=== PATIENT | male | born 1960 | race Caucasian/White ===

== ENCOUNTER 2017-11-18 11:18 | Inpatient (IN) | payer OTHER ==
[2017-11-18] MEDS ORDERED: Ondansetron HCl/PF 4 MG/2 ML Vial IVP PRN (12:18)
[2017-11-18] MEDS ORDERED: Calcium Carbonate 500 MG ChewTAB PO PRN (12:18)
[2017-11-18] MEDS ORDERED: Acetaminophen 325 MG TAB PO PRN (12:18)
[2017-11-18] MEDS ORDERED: Ondansetron ODT 4 MG TAB PO PRN (12:18)
[2017-11-18] MEDS ORDERED: hydrALAZINE 20 MG/ML VIAL SLOW IVP PRN (12:18)
[2017-11-18] MEDS ORDERED: Senokot 8.6 MG TAB PO PRN (12:18)
[2017-11-18 12:31] LABS: #Basophils 0.1 thou/uL (0.0-0.2); #Eosinphils 0.5 thou/uL (0.0-0.7); #Lymphocytes 1.3 thou/uL (1.20-3.40); #Monocytes 0.6 thou/uL (0.11-0.59); #Neutrophils 3.8 thou/uL (1.40-6.50); %Basophils 1.2 % (0.0-1.0); %Eosinophils 7.9 % (0.0-10.0); %Lymphocytes 20.7 % (21.0-51.0); %Monocytes 9.2 % (0.0-10.0); %Neutrophils 61.1 % (42.0-75.0); Hemoglobin 10.7 g/dL (14.0-18.0); Mean Corpuscular HGB CONC 33.1 g/dL (32.0-36.0); Mean Corpuscular Hemoglobin 30.9 pg (27.0-31.0); Mean Corpuscular Volume 93.2 fl (80.0-94.0); Mean Platelet Volume 7.4 fL (7.4-10.4); Platelet Count 353 thou/uL (130-400); RBC Distribution Width 11.3 % (11.5-14.5); Red Blood Cell (RBC) Count 3.46 mill/uL (4.70-6.10); White Blood Cell (WBC) Count 6.1 thou/uL (4.8-10.8)
[2017-11-18 12:38] VITALS: BMI 23.3
[2017-11-18 12:52] LABS: ALT (SGPT) 14 U/L (8-55); AST (SGOT) 13 U/L (5-34); Albumin 4.7 g/dL (3.5-5.0); Alkaline Phosphatase 42 U/L (40-150); Anion Gap 18 mmol/L (10-20); BUN (Urea Nitrogen) 101 mg/dL (8.4-25.7); Bilirubin, Total 0.5 mg/dL (0.2-1.2); Calc. Creatinine Clearance 10 mL/min (70-130); Calcium 10.7 mg/dL (7.8-10.44); Carbon Dioxide 21 mmol/L (22-29); Chloride 104 mmol/L (98-107); Estimated GFR-MDRD 6; Globulin 3.1 g/dL (2.4-3.5); Glucose 95 mg/dL (70-105); Phosphorus 5.8 mg/dL (2.3-4.7); Potassium 4.5 mmol/L (3.5-5.1); Protein, Total 7.8 g/dL (6.0-8.3); Sodium 138 mmol/L (136-145)
[2017-11-18 13:12] LABS: HBSAg Index 0.13 S/CO (0-0.99); HIV (1/2) Antibody/Antigen Non-Reactive (NonReactive); HIV 1/2 INDEX 0.12 S/CO (<1.00); Hep B Core Total Ab Non-Reactive (NonReactive); Hep B Core Total Index 0.08 S/CO (0-0.79); Hep B Surf AB Non-Reactive (NonReactive); Hep B Surf Ag Non-Reactive S/CO (NonReactive); Hep C IgG Ab Non-Reactive (NonReactive); Hep C Index 0.15 S/CO (0-0.79)
[2017-11-18 14:23] LABS: Bilirubin Negative (Negative); Blood, Urine Small (Negative); Clarity CLEAR (Clear); Glucose, Urine (Dipstick) 100 mg/dL (Negative); Leukocyte Small (Negative); Nitrite Negative (Negative); Protein, Urine (Dipstick) 30 mg/dL (Neg-Trace); Specific Gravity, Urine 1.008 (1.002-1.036); Urobilinogen 0.2 mg/dL (0.2-1.0); pH, Urine 6.5 (5.0-9.0)
[2017-11-18 14:30] LABS: Bacteria/HPF None Seen HPF (None Seen); Hyaline Casts/LPF 0-3 HYALINE CAST LPF (0-3 Hyaline); Pathc Cast-AUWi Flag 0.14 (0-2.49); RBC/HPF 0-3 HPF (0-3); Squamous Epithelial None Seen HPF (0-3)
[2017-11-18 14:54] LABS: Troponin I Less than 0.010 ng/mL (< 0.028)
--- NOTE | 2017-11-18 20:24 | HP ---
DATE OF ADMISSION: 11/18/2017 PRIMARY SPORT SHOE SPIKE ASSEMBLER: Dr. Ignacio Zapata. CHIEF COMPLAINT: Uremic symptoms. The patient is direct admit from Dr. Ignacio Zapata's office. HISTORY OF PRESENT ILLNESS: The patient is a 57-year-old male with polycystic kidney disease, who pr esented as a direct admit from Dr. Ignacio Zapata's office for uremia. The patient has a long history of polycystic kidney disease. He used to follow out of town nephrolog ist until 3-4 months ago. Currently, he sees Dr. Ignacio Zapata with weekly labs. He is currently s cheduled for a renal transplant in January of this year. Over the past few months, the patient has fatigue that is progressively getting worse to the extent t hat patient is unable to participate in his regular activities of daily living. He also had shortnes s of breath on mild exertion. He denies any chest pain, shortness of breath, palpitations, nausea, v omiting, diaphoresis. Dr. Ignacio Zapata recommended starting him on hemodialysis due to uremic symp toms. PAST MEDICAL HISTORY: 1. Polycystic kidney disease. 2. Hypertension. 3. Hyperlipidemia. PAST SURGICAL HISTORY: Hernia surgery x4. ALLERGIES: No known drug allergies. CURRENT HOME MEDICATIONS: Amlodipine 10 mg daily, Lipitor 10 mg daily, calcitriol 0.25 mcg daily, ca rvedilol 12.5 mg b.i.d., Lasix 40 mg daily, Cialis 5 mg daily, terazosin 1 mg at bedtime, and testost erone gel 3 times daily. ALLERGIES: No known drug allergies. SOCIAL HISTORY: Patient currently works as a senior strategy manager. He denies any smoking, alcohol or drug u se. He currently lives at home with his family. FAMILY HISTORY: Positive for polycystic kidney disease. REVIEW OF SYSTEMS: The following complete review of systems was negative, unless otherwise mentioned in the HPI or below: Constitutional: Weight loss or gain, ability to conduct usual activities. Skin: Rash, itching. Eyes: Double vision, pain. ENT/Mouth: Nose bleeding, neck stiffness, pain, tenderness. Cardiovascular: Palpitations, dyspnea on exertion, orthopnea. Respiratory: Shortness of breath, wheezing, cough, hemoptysis, fever or night sweats. Gastrointestinal: Poor appetite, abdominal pain, heartburn, nausea, vomiting, constipation, or diarrh ea. Genitourinary: Urgency, frequency, dysuria, nocturia. Musculoskeletal: Pain, swelling. Neurologic/Psychiatric: Anxiety, depression. Allergy/Immunologic: Skin rash, bleeding tendency. PHYSICAL EXAMINATION: VITAL SIGNS: Temperature 97.9, pulse rate of 105, respiration of 16, blood pressure of 144/90 with O 2 saturation 95% on room air. GENERAL: A 57-year-old male, in no apparent distress. Feels generally weak. HEENT: Atraumatic, normocephalic, sclerae are anicteric. Moist mucous membranes. No oral lesion. NECK: Supple, no JVD appreciated. No carotid bruit. LUNGS: Clear to auscultation bilaterally, no wheezing, rales or rhonchi. HEART: S1 and S2 present. Regular rate and rhythm. No rubs, gallops, or significant murmurs apprec iated. ABDOMEN: Soft, nontender, bowel sounds present. EXTREMITIES: Trace edema in bilateral lower extremities. No calf tenderness. SKIN: Warm and dry. LYMPH NODES: No palpable lymph nodes in the neck. NEUROLOGY: Grossly nonfocal, moves all four extremities. PSYCHIATRY: Alert, awake, oriented x3. PERIPHERAL VASCULAR: Radial pulses palpable bilaterally. MUSCULOSKELETAL: No joint swelling or tenderness. LABORATORY AND X-RAY FINDINGS: CBC showed WBC 6.1 with hemoglobin 10.7, hematocrit 32.3, platelet co unt of 353. Chemistry showed sodium 138, potassium 4.5, chloride 104, bicarbonate 21, BUN 101, creat inine 8.8, glucose of 95. Phosphorus 5.8. PTH of 175. Troponins were negative. Urinalysis was neg ative for bacteria; however, it showed 11-20 WBCs. EKG by my review showed sinus rhythm. IMPRESSION: 1. Acute kidney injury secondary to polycystic kidney disease. 2. Chronic kidney disease suspected stage 4. 3. Secondary hyperparathyroidism secondary to kidney disease. 4. Hypertension. 5. Hyperlipidemia. 6. Family history of polycystic kidney disease. PLAN: The patient will be monitored on the medical floor. General Surgery will be consulted for pawan lysis access. Hemodialysis will be initiated. We will add urine culture due to pyuria. We will hol d antibiotics for now. We will resume his home medications. Vital signs per routine protocol. We w ill consult adult protective caseworker for dialysis set up. Plan of care was discussed with the patient in detail, he stated understanding.
[2017-11-18] MEDS: Carvedilol 6.25 MG TAB PO SCH (20:50)
[2017-11-18] MEDS ORDERED: Non-Formulary Item 1 EACH (Carvedilol [Coreg] 12.5 MG) PO SCH (21:00)
--- NOTE | 2017-11-18 21:01 | EKG ---
Test Reason : Blood Pressure : / mmHG Vent. Rate : 062 BPM Atrial Rate : 062 BPM P-R Int : 218 ms QRS Dur : 102 ms QT Int : 388 ms P-R-T Axes : 047 033 016 degrees QTc Int : 393 ms Sinus rhythm with 1st degree A-V block Otherwise normal ECG No previous ECGs available Confirmed by LOULOU DUQUE ([id number]) on 11/18/2017 9:01:17 PM Referred By: BETO FELIZ Confirmed By:LOULOU DUQUE
[2017-11-18] MEDS: Terazosin HCl 1 MG CAP PO SCH (21:43)
[2017-11-18] MEDS ORDERED: Acetaminophen/Codeine 30-300mg Tablet PO PRN (23:34)
[2017-11-18] MEDS ORDERED: traMADol HCl 50 MG TAB PO PRN (23:35)
[2017-11-19] MEDS ORDERED: Tuberculin PPD 0.1 ML VIAL I-DERMAL SCH (06:00)
[2017-11-19] MEDS: Carvedilol 6.25 MG TAB PO SCH ×2 (08:38→20:14)
[2017-11-19] MEDS: Amlodipine 10 MG TAB PO SCH (08:38)
[2017-11-19] MEDS: Calcium Carbonate 500 MG ChewTAB PO SCH ×3 (08:38→17:26)
[2017-11-19] MEDS: Calcitriol 0.25 MCG CAP PO SCH (08:38)
[2017-11-19] MEDS: Furosemide 40 MG TAB PO SCH (08:39)
[2017-11-19] MEDS: Atorvastatin Calcium 10 MG TAB PO SCH (08:40)
--- NOTE | 2017-11-19 09:43 | CON ---
DATE OF SERVICE: 11/19/2017 Mr. Daugherty is a 57-year-old white male with polycystic kidney disease and progressive renal failure. He was admitted to the hospital by Dr. Zapata yesterday on 11/18/2017 for initiation of dialysis. Dung cervantes has apparently had progressive decline in renal function and there is a plan to proceed with a kidn ey transplant sometime later this year. I was consulted for dialysis access. I had arranged with the nurses to have available as I needed to put him on femoral dialysis catheter. Patient is under the impression that he was going to have a cuffed tunneled dialysis catheter place d. I explained that our two dialysis surgeons are both out of town until . I called Dr. Christian trevino and explained the same to him. There currently does not appear to be an urgent need to put in a femoral dialysis catheter and Dr. Zapata did not ask me to proceed with this. It is noted that his p otassium is normal and it does not appear to be grossly fluid overloaded. I will remain available sh ould the need for urgent dialysis arise.
[2017-11-19] MEDS ORDERED: Heparin 10,000 UNITS/ 10 ML VIAL ONE (10:00)
[2017-11-19] MEDS: Terazosin HCl 1 MG CAP PO SCH (20:18)
--- NOTE | 2017-11-19 21:01 | PDOC.PN ---
- Subjective Encounter Start Date: 11/19/17 Encounter Start Time: 12:00 Patient seen and examined. No new complaints. No overnight events - Objective Resuscitation Status: Resuscitation Status FULL:Full Resuscitation Vital Signs & Weight: Vital Signs (12 hours) Temp Pulse Resp BP BP Pulse Ox 11/19/17 20:42 97.9 F 74 20 126/80 97 11/19/17 20:14 126/80 11/19/17 13:37 98.1 F 73 16 116/73 96 Weight Weight 162 lb 5 oz I&O: 11/18/17 11/19/17 11/20/17 06:59 06:59 06:59 Intake Total 50 Balance 50 Result Diagrams: 11/18/17 12:20 11/18/17 12:20 Phys Exam - Physical Examination Constitutional: NAD Musculoskeletal: no edema Neurological: moves all 4 limbs Psychiatric: normal affect, A&O x 3 Dx/Plan - Plan DVT proph w/SCDs IMPRESSION: 1. Acute kidney injury secondary to polycystic kidney disease. 2. Chronic kidney disease suspected stage 4. 3. Secondary hyperparathyroidism secondary to kidney disease. 4. Hypertension. 5. Hyperlipidemia. 6. Family history of polycystic kidney disease. PLAN: * Nephro/Surg following * Dialysis per Nephro * Cont current meds as below Review of Systems - Review of Systems Cardiovascular: negative: chest pain, palpitations, orthopnea, paroxysmal nocturnal dyspnea, edema, light headedness, other Gastrointestinal: negative: Nausea, Vomiting, Abdominal Pain, Diarrhea, Constipation, Melena, Hematochezia, Other - Medications/Allergies Allergies/Adverse Reactions: Allergies Allergy/AdvReac Type Severity Reaction Status Date / Time No Known Allergies Allergy Unverified 11/18/17 11:44 Medications: Current Medications Acetaminophen (Tylenol) 650 mg PO Q4H PRN PRN Reason: Headache/Fever or Pain Acetaminophen/Codeine Phosphate (Tylenol #3) 1 tab PO Q2H PRN PRN Reason: PAIN 2nd line Amlodipine Besylate (Norvasc) 10 mg PO DAILY [facility] Last Admin: 11/19/17 08:38 Dose: 10 mg Atorvastatin Calcium (Lipitor) 10 mg PO DAILY [facility] Last Admin: 11/19/17 08:40 Dose: Not Given Calcitriol (Rocaltrol) 0.25 mcg PO DAILY [facility] Last Admin: 11/19/17 08:38 Dose: 0.25 mcg Calcium Carbonate (Tums) 1,000 mg PO Q4H PRN PRN Reason: Heartburn or Indigestion Calcium Carbonate (Tums) 500 mg PO PC [facility] Last Admin: 11/19/17 17:26 Dose: Not Given Carvedilol (Coreg) 12.5 mg PO BID [facility] Last Admin: 11/19/17 20:14 Dose: 12.5 mg Furosemide (Lasix) 40 mg PO QAM [facility] Last Admin: 11/19/17 08:39 Dose: 40 mg Hydralazine HCl (Apresoline) 10 mg SLOW IVP Q4H PRN PRN Reason: SBP Greater Than 180 Read Ppd Test Site 0 each PO 0600 [facility] Stop: 11/22/17 06:01 Ondansetron HCl (Zofran Odt) 4 mg PO Q6H PRN PRN Reason: Nausea/Vomiting Ondansetron HCl (Zofran) 4 mg IVP Q6H PRN PRN Reason: Nausea/Vomiting Senna (Senokot) 2 tab PO HSPRN PRN PRN Reason: Constipation Sodium Chloride (Flush - Normal Saline) 10 ml IVF PRN PRN PRN Reason: Saline Flush Terazosin HCl (Hytrin) 1 mg PO HS [facility] Last Admin: 11/19/17 20:18 Dose: 1 mg Tramadol HCl (Ultram) 50 mg PO Q12H PRN PRN Reason: Pain 1st line
[2017-11-20] MEDS ORDERED: Epoetin (ESRD) 20,000 UNITS/ML SC SCH (08:00)
[2017-11-20] MEDS: Atorvastatin Calcium 10 MG TAB PO SCH (09:04)
[2017-11-20] MEDS: Amlodipine 10 MG TAB PO SCH (09:04)
[2017-11-20] MEDS: Furosemide 40 MG TAB PO SCH (09:05)
[2017-11-20] MEDS: Calcitriol 0.25 MCG CAP PO SCH (09:05)
[2017-11-20] MEDS: Carvedilol 6.25 MG TAB PO SCH ×2 (09:05→20:25)
[2017-11-20] MEDS: Calcium Carbonate 500 MG ChewTAB PO SCH ×3 (09:06→17:33)
--- NOTE | 2017-11-20 16:11 | PDOC.PN ---
- Subjective Encounter Start Date: 11/20/17 Encounter Start Time: 11:20 Patient seen and examined. No new complaints. No overnight events - Objective Resuscitation Status: Resuscitation Status FULL:Full Resuscitation MAR Reviewed: Yes Vital Signs & Weight: Vital Signs (12 hours) Temp Pulse Resp BP BP Pulse Ox 11/20/17 09:05 121/78 11/20/17 09:04 72 121/78 11/20/17 08:00 98.3 F 72 16 97 11/20/17 07:47 98.3 F 72 16 121/78 97 Weight Weight 162 lb 5 oz I&O: 11/19/17 11/20/17 11/21/17 06:59 06:59 06:59 Intake Total 50 210 Balance 50 210 Result Diagrams: 11/18/17 12:20 11/18/17 12:20 Phys Exam - Physical Examination Constitutional: NAD Psychiatric: A&O x 3 Dx/Plan - Plan DVT proph w/SCDs IMPRESSION: 1. Acute kidney injury secondary to polycystic kidney disease. 2. Chronic kidney disease suspected stage 4. 3. Secondary hyperparathyroidism secondary to kidney disease. 4. Hypertension. 5. Hyperlipidemia. 6. Family history of polycystic kidney disease / Vit D deficiency PLAN: * Dialysis per Nephro * Nephro/Surg following * Cont current meds as below * Dialysis access in AM Laboratory Tests 11/18/17 12:20 1,25 Dihydroxy Vit D 15.8 L Review of Systems - Review of Systems Respiratory: negative: Cough, Dry, Shortness of Breath, Hemoptysis, SOB with Excertion, Pleuritic Pain, Sputum, Wheezing Cardiovascular: negative: chest pain, palpitations, orthopnea, paroxysmal nocturnal dyspnea, edema, light headedness, other Gastrointestinal: negative: Nausea, Vomiting, Abdominal Pain, Diarrhea, Constipation, Melena, Hematochezia, Other - Medications/Allergies Allergies/Adverse Reactions: Allergies Allergy/AdvReac Type Severity Reaction Status Date / Time No Known Allergies Allergy Unverified 11/18/17 11:44 Medications: Current Medications Acetaminophen (Tylenol) 650 mg PO Q4H PRN PRN Reason: Headache/Fever or Pain Acetaminophen/Codeine Phosphate (Tylenol #3) 1 tab PO Q2H PRN PRN Reason: PAIN 2nd line Amlodipine Besylate (Norvasc) 10 mg PO DAILY [facility] Last Admin: 11/20/17 09:04 Dose: 10 mg Atorvastatin Calcium (Lipitor) 10 mg PO DAILY [facility] Last Admin: 11/20/17 09:04 Dose: 10 mg Calcitriol (Rocaltrol) 0.25 mcg PO DAILY [facility] Last Admin: 11/20/17 09:05 Dose: 0.25 mcg Calcium Carbonate (Tums) 1,000 mg PO Q4H PRN PRN Reason: Heartburn or Indigestion Calcium Carbonate (Tums) 500 mg PO PC [facility] Last Admin: 11/20/17 13:47 Dose: 500 mg Carvedilol (Coreg) 12.5 mg PO BID [facility] Last Admin: 11/20/17 09:05 Dose: 12.5 mg Furosemide (Lasix) 40 mg PO QAM [facility] Last Admin: 11/20/17 09:05 Dose: 40 mg Hydralazine HCl (Apresoline) 10 mg SLOW IVP Q4H PRN PRN Reason: SBP Greater Than 180 Read Ppd Test Site 0 each PO 0600 [facility] Stop: 11/22/17 06:01 Ondansetron HCl (Zofran Odt) 4 mg PO Q6H PRN PRN Reason: Nausea/Vomiting Ondansetron HCl (Zofran) 4 mg IVP Q6H PRN PRN Reason: Nausea/Vomiting Senna (Senokot) 2 tab PO HSPRN PRN PRN Reason: Constipation Sodium Chloride (Flush - Normal Saline) 10 ml IVF PRN PRN PRN Reason: Saline Flush Terazosin HCl (Hytrin) 1 mg PO HS [facility] Last Admin: 11/19/17 20:18 Dose: 1 mg Tramadol HCl (Ultram) 50 mg PO Q12H PRN PRN Reason: Pain 1st line
[2017-11-20] MEDS: Terazosin HCl 1 MG CAP PO SCH (20:25)
--- NOTE | 2017-11-20 21:09 | ULT ---
BILATERAL UPPER EXTREMITY VEIN MAPPIN11/20/17 INDICATION: Dialysis access, end-stage renal disease. RIGHT UPPER EXTREMITY BRACHIAL ARTERY: 6.4 mm RADIAL ARTERY: 2.4 mm ULNAR ARTERY: 1.6 mm CEPHALIC VEIN Proximal Arm: 0.8 mm Mid Arm: 0.8 mm Distal Arm: 0.6 mm Antecubital Fossa: 2.0 mm Proximal Forearm: 4.4 mm Mid Forearm: 4.3 mm Distal Forearm: 3.3 mm BASILIC VEIN Proximal Arm: 6.3 mm Mid Arm: 3.5 mm Distal Arm: 4.5 mm Antecubital Fossa: 4.1 mm Proximal Forearm: 1.3 mm Mid Forearm: 1.2 mm Distal Forearm: 0.8 mm LEFT UPPER EXTREMITY BRACHIAL ARTERY: 6.0 mm RADIAL ARTERY: 2.3 mm ULNAR ARTERY: 1.4 mm CEPHALIC VEIN Proximal Arm: 2.0 mm Mid Arm: 1.5 mm Distal Arm: 2.3 mm Antecubital Fossa: 2.7 mm Proximal Forearm: 1.1 mm Mid Forearm: 0.9 mm Distal Forearm: 1.4 mm BASILIC VEIN Proximal Arm: 5.4 mm Mid Arm: 3.6 mm Distal Arm: 3.1 mm Antecubital Fossa: 2.1 mm Proximal Forearm: 1.5 mm Mid Forearm: 0.7 mm Distal Forearm: 0.5 mm Incidental note of indwelling catheter within the right cephalic vein. IMPRESSION: Upper extremity bilateral vein mapping as above. POS: [facility]
[2017-11-21] MEDS: Carvedilol 6.25 MG TAB PO SCH ×2 (05:31→19:56)
[2017-11-21] MEDS: READ PPD TEST SITE PO SCH (05:34)
[2017-11-21 08:24] LABS: Anion Gap 14 mmol/L (10-20); BUN (Urea Nitrogen) 57 mg/dL (8.4-25.7); Calc. Creatinine Clearance 13 mL/min (70-130); Carbon Dioxide 26 mmol/L (22-29); Chloride 104 mmol/L (98-107); Estimated GFR-MDRD 9; Glucose 102 mg/dL (70-105); Potassium 3.9 mmol/L (3.5-5.1); Sodium 140 mmol/L (136-145)
[2017-11-21] MEDS: Calcium Carbonate 500 MG ChewTAB PO SCH ×3 (10:23→18:00)
[2017-11-21] MEDS ORDERED: Lidocaine 2% 10 ML INJ ONE (13:23)
[2017-11-21] MEDS ORDERED: Heparin 10,000 UNITS/1 ML VIAL ONE (13:23)
[2017-11-21] MEDS ORDERED: Sodium Chloride 0.9% 10 ML ONE (13:23)
[2017-11-21] MEDS ORDERED: Bupivacaine HCl 0.5%/Epinephrine 1:200,000/PF 30 ml Vial ONE (13:23)
[2017-11-21] MEDS ORDERED: Fentanyl 100 MCG/2 ML VIAL ONE (13:26)
[2017-11-21] MEDS ORDERED: CEFAZOLIN/Water 2 GM/20 ML SYRINGE ONE (13:32)
--- NOTE | 2017-11-21 15:03 | RAD ---
AP VIEW CHEST: History Shortness of breath and respiratory distress. FINDINGS: AP view chest is obtained on 11/21/17. There is a right jugular dialysis catheter in place. The lungs are well aerated. Mild cardiomegaly is seen. No evidence of effusions, pneumonia, or pneumothorax is seen. IMPRESSION: Cardiomegaly; otherwise, unremarkable AP view chest. POS: [facility]
[2017-11-21] MEDS: Amlodipine 10 MG TAB PO SCH (15:40)
[2017-11-21] MEDS: Atorvastatin Calcium 10 MG TAB PO SCH (15:40)
[2017-11-21] MEDS: Furosemide 40 MG TAB PO SCH (15:40)
[2017-11-21] MEDS: Calcitriol 0.25 MCG CAP PO SCH (15:40)
[2017-11-21] MEDS ORDERED: ePHEDrine/0.9% NaCl/PF SYRINGE 50 mg/10 ml ONE (16:17)
[2017-11-21] MEDS ORDERED: PHENYLEPHRINE-NS 100 MCG/ML 10 ML SYRINGE ONE (16:17)
--- NOTE | 2017-11-21 17:22 | OP ---
PREOPERATIVE DIAGNOSES: End-stage renal disease, polycystic kidney disease, living related donor tra nsplantation planned in 01/2018. POSTOPERATIVE DIAGNOSES: End-stage renal disease, polycystic kidney disease, living related donor tr ansplantation planned in 01/2018. PROCEDURES PERFORMED: Right internal jugular cuffed tunnel hemodialysis catheter, ultrasound under f luoroscopy used. ANESTHESIA: Intravenous sedation, local 0.5% Marcaine with epinephrine, 30 mL, mixed with 2% Xylocai ne, 10 mL. PROCEDURE IN DETAIL: The patient was taken to the operating room where under intravenous sedation in supine position, neck and chest prepared with ChloraPrep, draped in routine fashion. Local anesthet ic mixture was infiltrated into skin and subcutaneous tissue about the operative site. Trocar cathet er under ultrasound guidance cannulated the right internal jugular vein. J-wire threaded. Trocar ca theter removed. Skin incised sharply. Stab incision made over the right chest at planned exit site. Tunneling device used to tunnel the angiodynamics, precurved hemodialysis catheter between the two incisions, placing the fabric cuff beneath the skin exit site over the right chest. Catheter secured with two interrupted sutures of 3-0 nylon. Biopatch sterile dressings applied. Smaller medium size d dilators placed over the J-wire into the internal jugular vein and removed. Dilator and pull-away sheath placed over the IJ into the internal jugular vein and dilator and J-wire removed. Catheter pl aced with pull-away sheath. Pull-away sheath removed. Fluoroscopic catheter noted to be in good pos ition. Platysma approximated with 4-0 Monocryl, skin with subdermal 4-0 Monocryl. DermaGlue and burton rile dressings applied. Fluoroscopic images revealed good line placement. Each port aspirated blood and flushed with saline solution and then heparinized saline solution 1000 units heparin per mL, ind icated volume of the port. Patient tolerated the procedure well.
--- NOTE | 2017-11-21 18:16 | HP ---
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 He has polycystic kidneys, has been followed by vaishnavi Fitzgerald ed this hospitalization for dialysis access. He has a living related donor transplant planned in 2017, having undergone [place] transplant at [facility]. Dr. Mueller placed a temporary hemodi alysis catheter in his femoral vein. Ultrasound vein mapping of septal veins and these in more proxi mal arms. He possibly could have a Maya on his right breast; however, he does not want a fistula. He just wants hemodialysis catheter, his living related donor transplantation is planned in the next two months. Plan is to place a hemodialysis catheter. ALLERGIES: None. TOBACCO: None. ALCOHOL: Rarely. MEDICATIONS: Testosterone 7.32 g NS t.i.d., Cialis as needed, Lasix 40 mg a day, Hytrin 1 mg at bedt reji, Coreg 12.5 mg b.i.d., Rocaltrol 0.25 mcg q. day, Lipitor 10 mg daily, amlodipine 10 mg daily. PAST SURGICAL HISTORY: Umbilical hernia repair with mesh, left inguinal hernia repair x2, right ingu inal hernia repair. PAST MEDICAL HISTORY: Chronic kidney disease. REVIEW OF SYSTEMS: Ten point noncontributory. He is up to date on his colonoscopies. PHYSICAL EXAMINATION: VITAL SIGNS: Height 5 feet 10 inches, weight 162 pounds, 23 BMI. HEENT: Unremarkable. LUNGS: Clear to auscultation. CARDIAC: Regular rate and rhythm without murmur or gallop. ABDOMEN: Soft, nontender, no masses. EXTREMITIES: Unremarkable, no abdominal hernias. No lymphadenopathy in groins, axilla or neck. ASSESSMENT AND PLAN: End-stage renal disease. He has temporary femoral vein hemodialysis catheter i n place, hemodialysis catheter with a living related donor transplantation planned in the next 6-8 we eks. Risks and benefits explained and he consents. He is advised to avoid IV access, blood draws ab ove his wrist and he will do so. We preserved his veins in case a fistula is needed in the future.
[2017-11-21] MEDS: Terazosin HCl 1 MG CAP PO SCH (19:57)
--- NOTE | 2017-11-21 20:10 | PDOC.PN ---
- Subjective Encounter Start Date: 11/21/17 Encounter Start Time: 15:30 Patient seen and examined. No new complaints. No overnight events - Objective Resuscitation Status: Resuscitation Status FULL:Full Resuscitation MAR Reviewed: Yes Vital Signs & Weight: Vital Signs (12 hours) Temp Pulse Resp BP BP Pulse Ox 11/21/17 19:56 117/73 11/21/17 15:00 97.7 F 66 14 127/82 98 11/21/17 10:10 98.3 F 73 16 135/91 H 97 Weight Weight 162 lb 5 oz I&O: 11/20/17 11/21/17 11/22/17 06:59 06:59 06:59 Intake Total 210 135 Output Total 1000 Balance -790 135 Result Diagrams: 11/18/17 12:20 11/21/17 06:38 Phys Exam - Physical Examination Constitutional: NAD Respiratory: no wheezing, no rhonchi Cardiovascular: RRR, no rub Gastrointestinal: soft, non-tender, positive bowel sounds Musculoskeletal: no edema Dx/Plan - Plan DVT proph w/SCDs IMPRESSION: 1. Acute kidney injury secondary to polycystic kidney disease. 2. Chronic kidney disease suspected stage 4. 3. Secondary hyperparathyroidism secondary to kidney disease. 4. Hypertension. 5. Hyperlipidemia. 6. Family history of polycystic kidney disease / Vit D deficiency PLAN: * Dialysis per Nephro * Nephro/Surg following * Cont current meds as below * DC after outpt dialysis setup Review of Systems - Review of Systems Respiratory: negative: Cough, Dry, Shortness of Breath, Hemoptysis, SOB with Excertion, Pleuritic Pain, Sputum, Wheezing Cardiovascular: negative: chest pain, palpitations, orthopnea, paroxysmal nocturnal dyspnea, edema, light headedness, other - Medications/Allergies Allergies/Adverse Reactions: Allergies Allergy/AdvReac Type Severity Reaction Status Date / Time No Known Allergies Allergy Unverified 11/18/17 11:44 Medications: Current Medications Acetaminophen (Tylenol) 650 mg PO Q4H PRN PRN Reason: Headache/Fever or Pain Acetaminophen/Codeine Phosphate (Tylenol #3) 1 tab PO Q2H PRN PRN Reason: PAIN 2nd line Amlodipine Besylate (Norvasc) 10 mg PO DAILY [facility] Last Admin: 11/21/17 15:40 Dose: Not Given Atorvastatin Calcium (Lipitor) 10 mg PO DAILY [facility] Last Admin: 11/21/17 15:40 Dose: 10 mg Calcitriol (Rocaltrol) 0.25 mcg PO DAILY [facility] Last Admin: 11/21/17 15:40 Dose: 0.25 mcg Calcium Carbonate (Tums) 1,000 mg PO Q4H PRN PRN Reason: Heartburn or Indigestion Calcium Carbonate (Tums) 500 mg PO PC [facility] Last Admin: 11/21/17 18:00 Dose: 500 mg Carvedilol (Coreg) 12.5 mg PO BID [facility] Last Admin: 11/21/17 19:56 Dose: 12.5 mg Furosemide (Lasix) 40 mg PO QAM [facility] Last Admin: 11/21/17 15:40 Dose: 40 mg Hydralazine HCl (Apresoline) 10 mg SLOW IVP Q4H PRN PRN Reason: SBP Greater Than 180 Read Ppd Test Site 0 each PO 0600 [facility] Stop: 11/22/17 06:01 Last Admin: 11/21/17 05:34 Dose: 1 each Ondansetron HCl (Zofran Odt) 4 mg PO Q6H PRN PRN Reason: Nausea/Vomiting Ondansetron HCl (Zofran) 4 mg IVP Q6H PRN PRN Reason: Nausea/Vomiting Senna (Senokot) 2 tab PO HSPRN PRN PRN Reason: Constipation Sodium Chloride (Flush - Normal Saline) 10 ml IVF PRN PRN PRN Reason: Saline Flush Terazosin HCl (Hytrin) 1 mg PO HS [facility] Last Admin: 11/21/17 19:57 Dose: 1 mg Tramadol HCl (Ultram) 50 mg PO Q12H PRN PRN Reason: Pain 1st line
[2017-11-22] MEDS: READ PPD TEST SITE PO SCH (05:45)
[2017-11-22] MEDS ORDERED: Heparin 10,000 UNITS/ 10 ML VIAL ONE (07:58)
[2017-11-22] MEDS ORDERED: Heparin 1,000 UNITS/ML VIAL ONE (11:11)
[2017-11-22] MEDS: Atorvastatin Calcium 10 MG TAB PO SCH (11:29)
[2017-11-22] MEDS: Calcitriol 0.25 MCG CAP PO SCH (11:29)
[2017-11-22] MEDS: Carvedilol 6.25 MG TAB PO SCH (11:30)
[2017-11-22] MEDS: Calcium Carbonate 500 MG ChewTAB PO SCH ×2 (11:31→13:17)
[2017-11-22] MEDS: Furosemide 40 MG TAB PO SCH (11:31)
[2017-11-22 14:58] VITALS: BP 110/73; TEMP 98
--- NOTE | 2017-11-23 11:55 | DIS ---
The patient was seen on the day of discharge. Denies any new complaints. INPATIENT CONSULTANTS: 1. General surgery team. 2. Nephrology, Dr. Ignacio Zapata. INPATIENT PROCEDURE: Dialysis access. BRIEF HOSPITAL COURSE: The patient is a 57-year-old male with chronic kidney disease and polycystic kidney disease who presented as a direct admit from Dr. Ignacio Zapata's office for uremic symptoms. Please refer to the history and physical dated 11/18/2017 for further details. The patient was admitted to the hospital with a diagnosis of uremic symptoms with significant acute k idney injury. Creatinine was 8.8. He underwent temporary right femoral dialysis catheter since Dr. Landers was unavailable. Two days later, he underwent right internal jugular cuffed tunneled hemodial ysis catheter. The femoral dialysis catheter has been discontinued. He underwent hemodialysis per N ephrology, Dr. Ignacio Zapata. Outpatient dialysis has been setup. He has been cleared by consultan ts for discharge. FINAL DIAGNOSES: 1. Acute kidney injury on chronic kidney disease stage 4 with uremic symptoms started on hemodialysi s this admission. 2. Polycystic kidney disease. 3. Secondary hyperparathyroidism. 4. Hypertension. 5. Hyperlipidemia. 6. Family history of polycystic kidney disease. 7. Vitamin D deficiency. Plan of care was discussed with the patient in detail. He stated understanding.
--- NOTE | 2017-11-25 22:41 | OP ---
DATE OF PROCEDURE: 11/19/2017 PREOPERATIVE DIAGNOSIS: End-stage renal disease. POSTOPERATIVE DIAGNOSIS: End-stage renal disease. OPERATION PERFORMED: Ultrasound-guided right femoral double-lumen hemodialysis catheter placement. SURGEON: Ulises Mueller M.D. ANESTHESIA: Local using 1% lidocaine. INDICATIONS: Patient is a 57-year-old white male. He has progressive renal failure secondary to geovanni ycystic kidney disease. He was admitted to the hospital yesterday by his director sales and temporary hemodialysis catheter was requested to begin hemodialysis. DESCRIPTION OF OPERATION: Informed consent was obtained. Right groin was trimmed of hair, prepped w ith ChloraPrep, and draped in sterile fashion. Ultrasound was utilized to identify the femoral vein and artery. Local anesthetic was infiltrated with 1% lidocaine. Using ultrasound guidance, large ga uge needle was advanced on the initial pass into the right femoral vein. Guidewire was passed throug h the needle. Needle was removed, skin was incised, tract was dilated, and double-lumen 12-Syriac he modialysis catheter was placed uneventfully. Both lumens of the catheter aspirated blood freely and were flushed with heparinized saline. Catheter was secured at skin exit site with 3-0 silk suture. Sterile occlusive dressing was applied along with a Biopatch. There were no complications. Patient tolerated the procedure well and was cleared to begin dialysis at this time.
== END 2017-11-22 14:50 | disposition home or self-care (01) | DRG 674 ==
LOC: T4-B 11:18
PROVIDERS: ADMIT Internal Medicine; ATTEND Internal Medicine
PROC: 5A1D70Z Performance of Urinary Filtration, Intermittent, Less than 6 Hours Per Day (ICD-10-PCS; principal; 2017-11-19)
PROC: 06HM33Z Insertion of Infusion Device into Right Femoral Vein, Percutaneous Approach (ICD-10-PCS; 2017-11-19)
PROC: 0JH63XZ Insertion of Tunneled Vascular Access Device into Chest Subcutaneous Tissue and Fascia, Percutaneous Approach (ICD-10-PCS; 2017-11-21)
PROC: 05HM33Z Insertion of Infusion Device into Right Internal Jugular Vein, Percutaneous Approach (ICD-10-PCS; 2017-11-21)
DX: N17.9 Acute kidney failure, unspecified (principal); Q61.3 Polycystic kidney, unspecified; Z76.82 Awaiting organ transplant status; E83.39 Other disorders of phosphorus metabolism; N25.81 Secondary hyperparathyroidism of renal origin; N18.6 End stage renal disease; N18.4 Chronic kidney disease, stage 4 (severe); E78.5 Hyperlipidemia, unspecified; E55.9 Vitamin D deficiency, unspecified; Z82.71 Family history of polycystic kidney; Z99.2 Dependence on renal dialysis; I10 Essential (primary) hypertension
CPT/HCPCS: 36415; 71045; 80048; 80053; 81003; 81015; 82652; 82728; 83970; 84100; 84484; 85025; 86580; 86704; 86706; 86803; 87086; 87340; 87389; 90935; 93005; 93010; 93970; A4216; C1752; C1769; G0257; G0365; J0670; J1644; J3010; Q4081

== ENCOUNTER 2018-03-28 14:53 | Observation (INO) | payer OTHER ==
[~2018-03-28 14:53] MED LIST: Heparin 1,000 UNITS/ML VIAL ONE
[2018-03-28 16:24] LABS: #Basophils 0.1 thou/uL (0.0-0.2); #Eosinphils 0.3 thou/uL (0.0-0.7); #Lymphocytes 1.3 thou/uL (1.20-3.40); #Monocytes 0.8 thou/uL (0.11-0.59); #Neutrophils 3.1 thou/uL (1.40-6.50); %Basophils 1.5 % (0.0-1.0); %Eosinophils 6.1 % (0.0-10.0); %Lymphocytes 23.7 % (21.0-51.0); %Monocytes 13.8 % (0.0-10.0); %Neutrophils 54.9 % (42.0-75.0); Hemoglobin 12.5 g/dL (14.0-18.0); Mean Corpuscular HGB CONC 34.5 g/dL (32.0-36.0); Mean Corpuscular Hemoglobin 32.6 pg (27.0-31.0); Mean Corpuscular Volume 94.6 fL (78.0-98.0); Mean Platelet Volume 7.2 fL (7.4-10.4); Platelet Count 286 thou/uL (130-400); RBC Distribution Width 11.8 % (11.5-14.5); Red Blood Cell (RBC) Count 3.84 mill/uL (4.70-6.10); White Blood Cell (WBC) Count 5.7 thou/uL (4.8-10.8)
[2018-03-28 16:46] LABS: ALT (SGPT) 21 U/L (8-55); AST (SGOT) 25 U/L (5-34); Albumin 3.9 g/dL (3.5-5.0); Alkaline Phosphatase 58 U/L (40-150); Anion Gap 17 mmol/L (10-20); BUN (Urea Nitrogen) 62 mg/dL (8.4-25.7); Bilirubin, Total 0.3 mg/dL (0.2-1.2); Calc. Creatinine Clearance 0 mL/min (70-130); Calcium 10.1 mg/dL (7.8-10.44); Carbon Dioxide 27 mmol/L (22-29); Chloride 98 mmol/L (98-107); Estimated GFR-MDRD 6; Globulin 3.1 g/dL (2.4-3.5); Glucose 95 mg/dL (70-105); Potassium 4.8 mmol/L (3.5-5.1); Sodium 137 mmol/L (136-145)
[2018-03-28] MEDS ORDERED: Meclizine HCl 25 MG TAB ONE (17:53)
--- NOTE | 2018-03-28 17:54 | CT ---
CT HEAD NONCONTRAST: 03/28/18 HISTORY: Altered mental status. FINDINGS: No comparison. There is no evidence of acute intracranial hemorrhage or infarct. The ventricles appe ar normal in size, shape and position. There is no mass effect or shift of midline structures. IMPRESSION: No acute intracranial abnormalities are demonstrated on noncontrast CT head. POS: KENDRA
[2018-03-28 18:06] LABS: CKMB 1.5 ng/mL (0-6.6); Troponin I 0.016 ng/mL (< 0.028)
[2018-03-29] MEDS ORDERED: Meclizine HCl 25 MG TAB PO PRN (00:32)
[2018-03-29] MEDS ORDERED: Acetaminophen 325 MG TAB PO PRN (00:33)
[2018-03-29] MEDS ORDERED: Ondansetron HCl/PF 4 MG/2 ML Vial IVP PRN (00:33)
[2018-03-29] MEDS ORDERED: HYDROcodone/Acetaminophen 5/325 mg Tablet PO PRN ×2 (00:33)
[2018-03-29] MEDS ORDERED: Ondansetron ODT 4 MG TAB SL PRN (00:33)
[2018-03-29 05:43] VITALS: BMI 22.4
[2018-03-29] MEDS ORDERED: Atorvastatin Calcium 10 MG TAB PO SCH (09:00)
[2018-03-29] MEDS ORDERED: Aspirin 325 mg Enteric Coated Tablet PO SCH (09:00)
[2018-03-29] MEDS ORDERED: Aspirin 325 MG TAB PO SCH (09:00)
[2018-03-29] MEDS ORDERED: Furosemide 40 MG TAB PO SCH (09:00)
[2018-03-29] MEDS ORDERED: Enoxaparin Sodium 40 MG/0.4 ML SYRINGE SC SCH (09:00)
--- NOTE | 2018-03-29 09:08 | ULT ---
CAROTID ULTRASOUND: DATE: 03/29/18 COMPARISON: None. HISTORY: TIA. TECHNIQUE: Multiplanar Valdez scale and color Doppler images were obtained in a carotid ultrasound. Spectral nitesh sis of the Doppler waveforms were performed. FINDINGS: No significant plaque is visualized in either internal or common carotid artery. The Doppler waveform s are normal bilaterally. Peak systolic velocity in the right ICA is 64 cm/second. Peak systolic velocity in the right CCA is 1 36 cm/second. The right ICA/CCA ratio is 0.5. Peak systolic velocity in the left ICA is 75 cm/second. Peak systolic velocity in the left CCA is 155 cm/second. The left ICA/CCA ratio is 0.5. Both vertebral arteries demonstrate antegrade flow without focal stenosis. IMPRESSION: No evidence of hemodynamically significant stenosis. POS: DOUG
[2018-03-29 10:39] LABS: CKMB 1.2 ng/mL (0-6.6); Troponin I 0.016 ng/mL (< 0.028)
[2018-03-29 10:50] LABS: Anion Gap 14 mmol/L (10-20); BUN (Urea Nitrogen) 38 mg/dL (8.4-25.7); Calc. Creatinine Clearance 11 mL/min (70-130); Carbon Dioxide 28 mmol/L (22-29); Chloride 100 mmol/L (98-107); Estimated GFR-MDRD 7; Glucose 92 mg/dL (70-105); Potassium 4.3 mmol/L (3.5-5.1); Sodium 138 mmol/L (136-145)
[2018-03-29] MEDS: Calcium Carbonate 500 MG ChewTAB PO SCH ×2 (11:22→13:43)
--- NOTE | 2018-03-29 11:34 | MRI ---
NONCONTRAST ENHANCED MRI BRAIN: Date: 03/29/18 HISTORY: 57-year-old presents with a history of stroke-like symptoms. Dizziness. Ataxia. FINDINGS: Multiplanar, multisequence noncontrast enhanced MRI of the brain demonstrate moderate degree of right maxillary sinus mucus retention cysts. A smaller left maxillary sinus mucus retention cyst is seen. Minimal bilateral ethmoid sinus mucosal thickening is seen. The brain is unremarkable. No evidence of intracranial masses, hemorrhages, strokes, or contusions se en. Normal flow-voids seen in the major intracranial vessels. No evidence of areas of diffusion restriction seen to suggest acute strokes. IMPRESSION: No evidence of acute strokes or intracranial mass lesions seen. POS: KENDRA
[2018-03-29 15:30] VITALS: BP 130/75; TEMP 97.4
--- NOTE | 2018-03-29 17:41 | CON ---
DATE OF CONSULTATION: 03/29/2018 REFERRING PHYSICIAN: Dr. Susan Medina. REASON FOR CONSULTATION: Dizziness. HISTORY OF PRESENT ILLNESS: Mr. Daugherty is a pleasant 57-year-old male , who has been consulted for evaluation of dizziness. The patient reports that since Saturday, he started noticing episodes of dizziness. He notes that every time when he turns his head either sideways or up and down, he develops dizziness and feeling of objects moving slower and lagging behind. He notes that while walking he feels somewhat unsteady. He denies any double vision, ptosis, tinnitus or hearing changes with these episodes. He denies any headache , chest pain, palpitation, nausea, vomiting, abdominal pain. He reports that he has had history of vertigo in the past, in which he had a sudden onset of spinning around sensation and falling down. He had seen ENT at that time and was diagnosed with positional vertigo. This resolved spontaneously after a few days. Of note, he has had treatment with vancomycin and gentamicin of 1 week before the symptom onset. PAST MEDICAL HISTORY: Significant for end-stage renal disease on dialysis, recent staph infection. PAST SURGICAL HISTORY: Significant for hernia repair. SOCIAL HISTORY: The patient denies smoking, alcohol use, or illicit drug use. CURRENT MEDICATIONS: Please review MAR. ALLERGIES: No known drug allergies. FAMILY HISTORY: Noncontributory. REVIEW OF SYSTEMS: As mentioned in the HPI, otherwise negative. PHYSICAL EXAMINATION: VITAL SIGNS: Blood pressure of 130/75, pulse of 75, temperature 97.4, respirations of 16, and O2 sat 95% on room air. GENERAL: Well-developed, well-nourished male in no apparent distress. RESPIRATORY: Clear to auscultation bilaterally. CARDIOVASCULAR: Regular rate and rhythm. NEUROLOGIC: Mental status: The patient is awake, alert, oriented x3. Speech and language: Fluent speech. Cranial nerves: Pupils are 3 mm and reactive. Visual witt are intact. External muscles are intact. No nystagmus noted. Face is symmetric. Tongue and uvula are midline. Motor exam showed normal tone and bulk with a 5/5 strength in both upper and lower extremities. Sensory : Sensation is intact and symmetric. Deep tendon reflexes 2+ reflexes in both upper and lower extremities. Babinski: Plantar responses flexion bilaterally. Coordination intact to [id number] and finger tapping bilaterally. LABORATORY DATA: Reviewed, which included CBC, CMP, BNP, which is significant for hemoglobin 12.5, hematocrit 36.3, BUN of 38, creatinine 7.71. BMP of. BNP of 169.3, otherwise unremarkable. IMAGING STUDIES: MRI brain without contrast was reviewed, which showed no acute intracranial abnormality. Carotid Doppler results were reviewed, which showed no hemodynamically significant stenosis. IMPRESSION: Dizziness, likely positional vertigo. Mr. Daugherty is a pleasant 57-year-old male who presented with 4-5 days history of dizziness based on the description of the spell, this is likely benign positional vertigo. This may have been triggered by recent gentamicin use as it can cause ototoxicity. I would recommend performing outpatient dizzy and balance therapy. I have given him Willingham-Daroff exercises to perform at home. No further neurological workup needed from my standpoint. CONSTANZA
[2018-03-29] MEDS ORDERED: Atorvastatin Calcium 40 MG TAB PO SCH (21:00)
--- NOTE | 2018-03-29 22:35 | SS ---
CHIEF COMPLAINT: Dizziness. HISTORY OF PRESENT ILLNESS: The patient is a very pleasant 57-year-old male with a history of polycy stic kidney disease, who currently is on dialysis, who comes into the hospital with complaints of diz ziness going on for the past 4 days. Patient stated that he woke up one day and felt very dizzy, whi ch continued to get worse, so he came to the ER for further evaluation. Patient then further describ ed stating that when he walks straight and looks a head straight, patient does not have any symptoms at all. No blurry vision, no double vision. However, whenever he moves his head right or left sudde nly he feels that he gets off balance and also feels he cannot focus on objects appropriately. The p atient denies any chest pain, any nausea, vomiting or diarrhea or any diaphoresis. Patient did state that about a week and a half ago, he was on vancomycin and gentamicin for a Staph. One blood cultur e was positive for Staphylococcus in his tunnel catheter. The patient was given this with dialysis f or about a week and a half. The patient also stated that he was started on ciprofloxacin; however, h is symptoms started before he initiated the dosage of ciprofloxacin. ER COURSE: He patient had a CT brain, which was negative. PAST MEDICAL HISTORY: 1. The patient has a history of polycystic kidney disease, currently on dialysis. He is being worke d up for transplant. 2. Hypertension. PAST SURGICAL HISTORY: Right hernia repair. He has had with mesh, left inguinal hernia repair and r ight inguinal hernia repair and dialysis, right tunneled dialysis catheter placed. REVIEW OF SYSTEMS: All negative except for the ones mentioned above in the HPI. SOCIAL HISTORY: He denies any smoking, drug use, alcohol occasional. ALLERGIES: No known drug allergies. FAMILY HISTORY: Mother had a history of polycystic kidney disease. PHYSICAL EXAMINATION: VITAL SIGNS: Temperature of 98.8, 68, 20, 98% on room air, and 120/65. GENERAL: He is awake, alert, and oriented x3, does not appear in any distress. HEENT: Normocephalic, atraumatic. Patient does have mild nystagmus on horizontal nystagmus. Crania l nerves II-XI are intact. HEART: S1 and S2 present. No murmurs, rubs, or gallops. LUNGS: Clear to auscultation, rhonchi, or wheezes noted. ABDOMEN: Soft, nontender. Bowel sounds are present x2. EXTREMITIES: No edema. He does have a right chest wall tunneled catheter. NEURO: A 5/5 upper extremity and 5/5 lower extremity strength. No weakness noted. LABORATORY DATA: As of the following: WBC of 5.7, hemoglobin of 12.5, hematocrit of 36.3, platelets of 286. Chemistry: Sodium of 130, potassium 4.3, BUN 38, creatinine 7.71, sodium of 92, calcium of 10.0. Troponin x2 were negative. ASSESSMENT AND PLAN: The patient is a very pleasant 57-year-old male, who presents to the hospital w ith complaints of dizziness. 1. Dizziness, most likely possible gentamicin toxicity. I did discuss this case with Neurology, who stated that based on his physical examination finding and his history is most likely gentamicin [place]. I do not think at this point getting a toxicity level is going to be very helpful. The patien t did have an echocardiogram, which was essentially negative. He did have an MRI brain, which also w as negative. Carotid Dopplers were done, which was also negative and 2. Polycystic kidney disease. The patient gets dialyzed, most likely will be discharged today, will not need to consult Nephrology. 3. Disposition. Again, the patient will be discharged home today to speak with Neurology. We will get patient and balancing therapy with PT as outpatient. He will continue his atorvastatin and calci um 750 before meals. He will follow up with PCP and with his architectural engineering teacher. I did speak with him janet t ciprofloxacin for Pseudomonas that he has been treated for skin site infection would still not be a very good medication given that it can also cause some worsening toxicity. He stated that he will d iscuss it with his architectural engineering teacher and his primary care doctor. Patient also was asked to be careful on driving, especially on sudden movements since he is still having some ataxic gait and also has probl ems focusing on objects.
== END 2018-03-29 17:52 | disposition home or self-care (01) ==
LOC: ERS 14:53 → 2SE 23:50
PROVIDERS: ADMIT Internal Medicine; ATTEND Internal Medicine
DX: R42 Dizziness and giddiness (principal); Q61.3 Polycystic kidney, unspecified; I12.0 Hypertensive chronic kidney disease with stage 5 chronic kidney disease or end stage renal disease; N18.6 End stage renal disease; Z79.899 Other long term (current) drug therapy; Z99.2 Dependence on renal dialysis
CPT/HCPCS: 36415; 70450; 70551; 80048; 80053; 82550; 82553; 83880; 84484; 85025; 90935; 93306; 93880; 96372; A4216; G0257; G0378; G8978-GP-CI; G8979-GP-CI; G8980-GP-CI; G8987-GO-CI; G8988-GO-CI; G8989-GO-CI; G8996-GN-CH; G8997-GN-CH; J1644; J1650

== ENCOUNTER 2018-05-02 05:58 | Day surgery (SDC) | payer OTHER ==
[2018-05-01 12:40] VITALS: BMI 22.9
--- NOTE | 2018-05-02 00:11 | HP ---
HISTORY OF PRESENT ILLNESS: Marquis Daugherty is a 57-year-old male, end-stage renal disease, [place] [facility] [place], [place] Saturday at 4:30 p.m. He is referred by Dr. Zapata. He has had a hemodialysis catheter present since October with plans for donor-directed a renal transpla nt. However, this has been delayed due to donor workup issues. They are planning to have a donor-di rected renal transplant in May. He has a dysfunctional hemodialysis catheter. The blood culture s have been negative. Exit site cultures have revealed different organisms, but there has been no re dness or fever. His catheter is not working well. I have been asked to see him regarding removal of the catheter, placement of a new catheter, culture of the tip. He understands the risks and benefit s, he consent, outpatient IV sedation, local. PAST MEDICAL HISTORY: End-stage renal disease on maintenance dialysis Saturday, Saturday, and Saturday [place] [facility] [place]. Ignacio Zapata, hypertension. PAST SURGICAL HISTORY: Inguinal hernia repair in 1999, hemodialysis catheter placed in 11/2017 . FAMILY HISTORY: Heart disease in mother. TOBACCO: None. ALCOHOL: None. SOCIAL HISTORY: Patient is a body shop technician. ALLERGIES: None. REVIEW OF SYSTEMS: Noncontributory otherwise. FAMILY HISTORY: Noncontributory otherwise. PHYSICAL EXAMINATION: VITAL SIGNS: 161 pounds, 70 inches, 127/78, 69, 97.9 degrees. HEAD, EYES, EARS, NOSE, AND THROAT: Unremarkable. LUNGS: Clear to auscultation. CARDIAC: Regular rate and rhythm without murmur or gallop. ABDOMEN: Soft, nontender. EXTREMITIES: Unremarkable. Dialysis catheter, right IJ, slight amount of drainage. SKIN: Normal without cellulitis without any infection. ASSESSMENT: Dysfunctional hemodialysis catheter. PLAN: Removal of old, placement of new hemodialysis catheter and culture of the tip per my request. Risk of infection, bleeding, reoperation discussed, he consents. MEDICATIONS: Carvedilol 6.25 mg a day, atorvastatin daily. Currently, not on any antibiotics.
[2018-05-02] MEDS ORDERED: Lidocaine 2% PF Inj 2 ML VIAL ONE (06:30)
[2018-05-02] MEDS ORDERED: Bupivacaine HCl 0.5%/Epinephrine 1:200,000/PF 30 ml Vial ONE (06:30)
[2018-05-02] MEDS ORDERED: Sodium Chloride 0.9% 10 ML ONE (06:30)
[2018-05-02] MEDS ORDERED: Heparin 10,000 UNITS/1 ML VIAL ONE ×2 (06:30→09:16)
[2018-05-02 07:00] LABS: #Basophils 0.1 thou/uL (0.0-0.2); #Eosinphils 0.4 thou/uL (0.0-0.7); #Lymphocytes 1.7 thou/uL (1.20-3.40); #Monocytes 0.8 thou/uL (0.11-0.59); #Neutrophils 4.7 thou/uL (1.40-6.50); %Eosinophils 5.7 % (0.0-10.0); %Lymphocytes 21.9 % (21.0-51.0); %Monocytes 10.6 % (0.0-10.0); %Neutrophils 60.9 % (42.0-75.0); Hemoglobin 11.9 g/dL (14.0-18.0); Mean Corpuscular HGB CONC 32.5 g/dL (32.0-36.0); Mean Corpuscular Hemoglobin 30.5 pg (27.0-31.0); Mean Corpuscular Volume 94.1 fL (78.0-98.0); Mean Platelet Volume 7.4 fL (7.4-10.4); Platelet Count 336 thou/uL (130-400); RBC Distribution Width 11.9 % (11.5-14.5); Red Blood Cell (RBC) Count 3.89 mill/uL (4.70-6.10); White Blood Cell (WBC) Count 7.6 thou/uL (4.8-10.8)
[2018-05-02] MEDS ORDERED: Levofloxacin 500 mg/D5W 100 ml Premix Bag ONE (07:09)
[2018-05-02 07:26] LABS: Anion Gap 16 mmol/L (10-20); BUN (Urea Nitrogen) 44 mg/dL (8.4-25.7); Calc. Creatinine Clearance 10 mL/min (70-130); Calcium 10.7 mg/dL (7.8-10.44); Carbon Dioxide 28 mmol/L (22-29); Chloride 100 mmol/L (98-107); Estimated GFR-MDRD 6; Glucose 97 mg/dL (70-105); Potassium 3.9 mmol/L (3.5-5.1); Sodium 140 mmol/L (136-145)
[2018-05-02] MEDS ORDERED: PROPOFOL 20 ML ONE (08:35)
--- NOTE | 2018-05-02 10:28 | RAD ---
AP VIEW CHEST: HISTORY: Central line placement status post hemodialysis catheter placement. Evaluate for possible pneumothor ax. FINDINGS: AP view chest was obtained on 05/02/18. Comparison is made to previous exam from 11/21/17. AP view chest demonstrates a right jugular dialysis catheter in place, distal tip overlying the right atrium. No evidence of post placement pneumothorax seen. No evidence of effusions or pneumonia is seen. The lungs are well aerated. IMPRESSION: Placement of a right jugular dialysis catheter with no post procedure abnormality seen. POS: DOUG
--- NOTE | 2018-05-02 11:18 | OP ---
DATE OF PROCEDURE: 05/02/2018 PREOPERATIVE DIAGNOSES: End-stage renal disease, dysfunctional right IJ dialysis catheter. POSTOPERATIVE DIAGNOSES: End-stage renal disease, dysfunctional right internal jugular dialysis cath eter. PROCEDURE: Removal of old right internal jugular vein dialysis catheter, placement of new right inte rnal jugular vein hemodialysis catheter, new exit site, cultured tip. Fluoroscopy used. SURGEON: Dr. Ignacio Landers ANESTHESIA: TIVA, local 0.5% Marcaine with epinephrine, 30 mL, mixed with 2% Xylocaine, 10 mL. PROCEDURE: The patient was taken to the operating room where under intravenous sedation exit site of the right IJ cuffed tunnel dialysis catheter cleansed with alcohol. Local anesthetic infiltrated in to the skin and subcutaneous tissue using intravenous sedation also. The cuff was freed from the sub cutaneous tissue. Neck and chest and catheter were then prepared with ChloraPrep, draped in routine fashion. Local anesthetic infiltrating in the skin and subcutaneous tissue over the right side of th e neck where the catheter into the IJ and the incision carried down platysma where the catheter was d issected free, grasped with hemostats, transected, and removed and the area of the chest then cleanse d with ChloraPrep again and a new exit site selected and a stab incision made and using the tunneling device, the precurved angiodynamics cuffed tunnel hemodialysis catheter tunneled between the two inc isions, placing the fabric cuff beneath the skin exit site and securing the catheter with 2 interrupt ed sutures of 3-0 nylon. Biopatch and sterile dressings applied. Dilator and pull-away sheath then placed over the old J wire after removing the old catheter and J wire and dilator removed. Catheter placed through pull-away sheath and the platysma approximated with 4-0 Monocryl, skin with subdermal 4-0 Monocryl and each port aspirated blood and flushed with saline solution and then heparinized sali ne solution 1000 units heparin per mL, indicated volume of the port. Fluoroscopic images revealed go od line placement. Sterile dressings applied. The patient tolerated the procedure well.
== END 2018-05-02 10:20 | disposition home or self-care (01) ==
LOC: SDC 05:58
PROVIDERS: ATTEND Specialist
PROC: 05HP33Z Insertion of Infusion Device into Right External Jugular Vein, Percutaneous Approach (ICD-10-PCS; principal; 2018-05-02)
PROC: 05PY33Z Removal of Infusion Device from Upper Vein, Percutaneous Approach (ICD-10-PCS; principal; 2018-05-02)
DX: T82.49XA Other complication of vascular dialysis catheter, initial encounter (principal); N18.6 End stage renal disease
CPT/HCPCS: 71045; 80048; 85025; 87071; A4216; C1752; C1769; J0670; J1644; J1956; J2704